=== PATIENT | male | born 2005 | race Caucasian/White ===

== ENCOUNTER 2025-01-23 19:31 | Emergency (ER) | payer OTHER, SELFPAY ==
[2025-01-23 19:34] VITALS: BP 126/83; PULSE 87; RESP 16; TEMP 36.7; O2SAT 97; BMI 22.0
--- OUTSIDE RECORDS SUMMARY | 2025-01-23 21:13 | XMS_ITS | Encounter Summary ---
Author Organization [facility] Address [address] [place] [address] Phone Care Team Providers Care Etcher Aircraft Name Role Phone Provider, Raghav RODRIGUES Primary Care Provider [phone] Encounter Details Date Type Department Care Team (Late st Contact Info) Description 12/14/2010 Documentation [facility] [place] Family Medicine [address] [place] [address] Family Medicine, Physician [address] [place], [place] [id number] Social History Tobacco Use Types Packs/Day Years Used Date Smoking Tobacco: Never Assessed Sex and Gender Information Value Date Recorded Sex Assigned at Male 07/17/2020 10:48 AM EDT Legal Sex Male 4:59 PM EDT Gender Identity Male 07/17/2020 10:48 AM EDT Sexual Orientation Straight 07/17/2020 10 :48 AM EDT documented as of this encounter Plan of Treatment Not on file documented as of this encounter Visit Diagnoses Not on filedocumented in this encounter Care Teams Etcher Aircraft Relationship Specialty Start Date End Date Provider, MD Raghav [address] [place] [address] PCP - General Pediatrics 11/13/24 documented as of this encounter
--- OUTSIDE RECORDS SUMMARY | 2025-01-23 21:13 | XMS_ITS | Encounter Summary ---
Author Organization [facility] Address [address] [place] [address] Phone Care Team Providers Care Electronics Computer Mechanic Name Role Phone Provider, Raghav RODRIGUES Primary Care Provider [phone] Encounter Details Date Type Department Care Team (Late st Contact Info) Description 01/16/2017 Documentation [facility] [place] [address] [place] [address] Family Medicine, Physician [address] [place], [place] [phone] Social History Tobacco Use Types Packs/Day Years [...] on filedocumented in this encounter Care Teams Electronics Computer Mechanic Relationship Specialty Start Date End Date Provider, MD Raghav [address] [place] [address] PCP - General Pediatrics 11/13/24 documented as of this encounter
--- OUTSIDE RECORDS SUMMARY | 2025-01-23 21:13 | XMS_ITS | Clinical Summary ---
Author Organization [facility] Address [address] [place] [address] Care Team Providers Care Model Technician Name Role Phone Unavailable Primary Care Provider Unavailabl e Allergies No known active allergies Medications No known medications Active Problems No known active problems Social History Tobacco Use Types Packs/Day Years Used Date Smoking Tobacco: Never Assessed Sex and Gender Information Value Date Recorded Sex Assigned at Male 04/19/2024 6:23 PM EDT Gender Identity Not on file Sexual Orientation Not on file Job Start Date Occupation Industry Not on file Not on file Not on file Last Filed Vital Signs Vital Sign Reading Time Taken Comments Blood Pressure 118/46 04/19/2024 9:13 PM EDT Pulse 70 04/19/2024 9:13 PM EDT Temperature 36.8 ??C (98.2 ??F) 04/19/2024 9:13 PM ED T Respiratory Rate 18 04/19/2024 9:13 PM EDT Oxygen Saturation 98% 04/19/2024 9:13 PM EDT Inhaled Oxygen Concentration - - Weight - - Height - - Body Mass Index - - Plan of Treatment Health Maintenance Due Date Last Done Comments Hepatitis C Screening 2004 Depression Screening 2016 Preventative Health Evaluation 2022 COVID-19 Vaccine ( season) 2024 11/18/2021, 10/28/2021 Influenza Vaccine (#1) 2024 , 08/11/2020, 09/08/2018, Additional history exists DTap / Tdap / Td (7 - Td or Tdap) 06/07/2025 06/07/2015, 05/26/2008, 11/28/2005, Additional history exists Hepatitis B Vaccines Completed 2004, 2004, 2004, Additional history exists Pneumococcal Vaccine Completed 08/22/2005, 2004, 2004, Additional history exists RSV Ped < 20 months Aged Out No longe r eligible based on patient's age to complete this topic Guarantor Name Account Type Relation to Patient Date of Phone Billing Address Andres Long Personal/Family Self 2005 [address] [place] [address]
--- OUTSIDE RECORDS SUMMARY | 2025-01-23 21:13 | XMS_ITS | Clinical Summary ---
Author Organization [facility] Address [address] [place] [id number] Care Team Providers Care Sap Portal Developer Name Role Phone Unavailable Primary Care Provider Unavailabl e Medications No known medications Social History Tobacco Use Types Packs/Day Years Used Date Smoking Tobacco: Never Assessed Sex and Gender Information Value Date Recorded Sex Assigned at Male 04/20/2024 7:33 PM EDT Gender Identity Male 04/20/2024 7:33 PM EDT Sexual Orientation Heterosexual (straight) 04/20 7:33 PM EDT Last Filed Vital Signs Vital Sign Reading Time Taken Comments Blood Pressure 122/64 04/21/2024 10:58 AM EDT Pulse 64 04/21/2024 10:58 AM EDT Temperature 36.4 ??C (97.6 ??F) 04/21/2024 10:58 AM E DT Respiratory Rate 16 04/21/2024 10:58 AM EDT Oxygen Saturation 98% 04/21/2024 10:58 AM EDT Inhaled Oxygen Concentration - - Weight - - Height - - Body Mass Index - - Plan of Treatment Health Maintenance Due Date Last Done Comments Hepatitis C Virus Screening 2004 HIV Screening 2017 HPV Vaccines (1 - Male 3-dose series) 2019 DTaP/Tdap/Td Vaccines (1 - Tdap) 2023 Hepatitis B Vaccines (1 of 3 - 19+ 3-dose series) 2023 Influenza Vaccine 06/24/2024 10/28/2021, , 09/08/2018, Additional history exists COVID-19 Vaccine (2023- season) 2024 11/18/2021, 10/28/2021 Pneumococcal Vaccine: Pediatric (0-5 Years) and At-Risk Patients (6 to 49 Years) Aged Out No longer eligible based on patient's age to complete this topic
--- OUTSIDE RECORDS SUMMARY | 2025-01-23 21:13 | XMS_ITS | Clinical Summary ---
Author Organization [facility] Address [address] [place] [address] Phone Care Team Providers Care Biological Science Aide Name Role Phone Physician, No Pcp Primary Care Provider Unavaila ble Allergies No known active allergies Encounters Date Type Department Care Team Description 12/08/2024 8:09 PM EST - 12/08/2024 11:56 PM EST Emergency [facility] [address] [place] [address] Palpitations (Primary Dx) Discharge Disposition: Home or Self Care from Last 3 Months Immunizations Name Administration Dates Next Due Pfizer SARS-CoV-2 COVID-19, mRNA, LNP-S, preservative free 11/18/2021,10/28/2021 Social History Tobacco Use Types Packs/Day Years Used Date Smoking Tobacco: Never Assessed Sex and Gender Information Value Date Recorded Sex Assigned at Male 12/08/2024 9:06 PM EST Legal Sex Male 4:42 PM EDT Gender Identity Male 12/08/2024 9:06 PM EST Sexual Orientation Not on file Obstetrics History Last Filed Vital Signs Vital Sign Reading Time Taken Comments Blood Pressure 129/64 12/08/2024 10:53 PM EST Pulse 68 12/08/2024 10:53 PM EST Temperature 37.2 ??C (99 ??F) 12/08/2024 10:53 PM EST Respiratory Rate 18 12/08/2024 10:53 PM EST Oxygen Saturation 98% 12/08/2024 10:53 PM EST Inhaled Oxygen Concentration - - Weight 63.5 kg (140 lb) 12/08/2024 5:39 PM EST Height 172.7 cm (5' 8 ) 12/08/2024 5:39 PM EST Body Mass Index 21.29 12/08/2024 5:39 PM EST Plan of Treatment Health Maintenance Due Date Last Done Comments Meningococcal B Vacine (1 of 2 - Standard) 2020 Annual Well Child Visit (3-21 years old) 06/23/2024 05/22/2022, 05/17/2021, 07/14/2020, Additional history exists Depression Screening 06/23/2024 HIV Screening 06/23/2024 Hepatitis C Screening 06/23/2024 Social Influencers of Health Screening 06/23/2024 COVID-19 Vaccine ( season) 2024 11/18/2021, 10/28/2021 Influenza Vaccine (#1) 2024 , 08/11/2020, 09/08/2018, Additional history exists DTaP,Tdap,and Td Vaccines (7 - Td or Tdap) 06/07/2025 06/07/2015, 05/26/2008, 11/28/2005, Additional history exists Hepatitis B Vaccines Completed 2004, 2004, 2004, Additional history exists HIB Vaccines Completed 08/22/2005, 11/24, 2004, Additional history exists Pneumococcal Vaccine: Pediatrics (0 to 5 Years) and At-Risk Patients (6 to 64 Years) Completed 08/22/2005, 2004, 2004, Additional history exists IPV Vaccines Completed 05/26/2008, 11/24, 2004, Additional history exists MMR Vaccines Completed 05/26/2008, 05/23/2005 Varicella Vaccines Completed 05/26/2008, 05/23/2005 Hepatitis A Vaccines Completed 06/07/2015, 06/01/20 14 HPV Vaccines Completed 06/12/2016, 07/25, 06/07/2015 Meningococcal ACWY Vaccine Completed 07/14/2020, RSV Immunization Patients Under 20 months Aged Out No longer eligible based on patient's age to complete this topic Procedures Procedure Name Priority Date/Time Associated Diagnosis Comments ECG 12-LEAD STAT 12/08/2024 10:51 PM EST THYROID STIMULATING HORMONE STAT 12/08/2024 9:50 PM EST COMPREHENSIVE METABOLIC PANEL STAT 12/08/2024 9:50 PM EST TROPONIN I HIGH SENSITIVITY STAT 12/08/2024 9:50 PM EST ECG 12-LEAD Routine 12/08/2024 8:40 PM EST CBC WITH AUTO DIFFERENTIAL STAT 12/08/2024 8:38 PM EST TROPONIN I HIGH SENSITIVITY STAT 12/08/2024 8:38 PM EST CBC AND DIFFERENTIAL STAT 12/08/2024 8:38 PM EST ECG ANNOTATED 12/08/2024 ECG ANNOTATED 12/08/2024 from Last 3 Months Results * 12-Lead ECG (12/08/2024 10:51 PM EST) Only the most recent of2 resultswithin the time period is included. Ventricular Rate ECG 63 BPM GEMUSE Atrial Rate 63 BPM GEMUSE P-R Interval 178 ms GEMUSE QRS Duration 100 ms GEMUSE Q-T Interval 390 ms GEMUSE QTc 399 ms GEMUSE P Wave [place] -4 degrees GEMUSE R [place] -113 degrees GEMUSE T [place] 46 degrees GEMUSE ECG Interpretation Normal sinus rhythm with sinus arrhythmia Right superior axis deviation Abnormal ECG When compared with ECG of 08-DEC-2024 20:40, (unconfirmed) No significant change was found Confirmed by SHRUTHI THOMPSON ([id number]) on 12/09/2024 9:40:06 AM GEMUSE 12/08/2024 10:5 1 PM EST 12/09/2024 9:40 AM EST us Nelson WINN ECG ORDERABLES Final Result GEMUSE * Troponin I high sensitivity (12/08/2024 9:50 PM EST) Only the most recent of2 resultswithin the time period is included. [facility] High Sensitivity Troponin I 4 <=79 ng/L LAB CHEMISTRY METHOD 12/08/2024 10:46 PM EST [facility] Blood Venous blood specimen / Unknown Venipuncture / Unknown 12/08/2024 9:50 PM EST 12/08/2024 10:18 PM EST Narrative [facility] - 12/08/2024 10:46 PM EST High levels of biotin in samples may falsely decrease hsTroponin values. ??Use caution when interpreting hsTroponin results in patients taking biotin who exhibit renal impairment (eGFR <60) or in patients taking more than 20 mg/day of biotin. [facility] WINN LAB BLOOD ORDERABLES Final Resul t Performing Organization Address [facility]/ZIP Co de Phone Number [facility] [address] [place] [address], [place] [phone] * Thyroid Stimulating Hormone (TSH) (12/08/2024 9:50 PM EST) [facility] TSH 2.31 0.40 - 4.00 mcIU/mL LAB CHEMISTRY METHOD 12/08/2024 10:54 PM EST [facility] Blood Venous blood specimen / Unknown Venipuncture / Unknown 12/08/2024 9:50 PM EST 12/08/2024 10:18 PM EST [facility] LAB BLOOD ORDERABLES Final Resul t Performing Organization Address City/[facility]/ZIP Co de Phone Number [facility] [address] [place] [address], [place] [phone] * Comprehensive Metabolic Panel (CMP) (12/08/2024 9:50 PM EST) [facility] Sodium 140 133 - 145 mmol/L LAB CHEMISTRY METHOD 12/08/2024 10:47 PM EST [facility] Potassium 3.5 3.5 - 5.5 mmol/L LAB CHEMISTRY METHOD 12/08/2024 10:47 PM [facility] Chloride 106 96 - 110 mmol/L LAB CHEMISTRY METHOD 12/08/2024 10:47 PM [facility] CO2 28 21 - 32 mmol/L LAB CHEMISTRY METHOD 12/08/2024 10:47 PM [facility] Anion Gap 6 3 - 11 LAB CHEMISTRY METHOD 12/08/2024 10:47 PM [facility] Glucose 89 70 - 100 mg/dL LAB CHEMISTRY METHOD 12/08/2024 10:47 PM [facility] BUN 15 5 - 25 mg/dL LAB CHEMISTRY METHOD 12/08/2024 10:47 PM [facility] Creatinine 1.13 0.70 - 1.30 mg/dL LAB CHEMISTRY METHOD 12/08/2024 10:47 PM [facility] eGFR 95 >=60 mL/min/1. 73m2 LAB CHEMISTRY METHOD 12/08/2024 10:47 PM [facility] Comment:Calculation based on the??Chronic Kidney Disease Epidemiology Collaboration (CKD-EPI) equation refit??without adjustment for race. BUN/Creatinine Ratio 13.3 LAB CHEMISTRY METHOD 12/08/2024 10:47 PM [facility] Calcium 9.9 8.5 - 10.5 mg/dL LAB CHEMISTRY METHOD 12/08/2024 10:47 PM [facility] AST (SGOT) 21 10 - 42 unit/L LAB CHEMISTRY METHOD 12/08/2024 10:47 PM [facility] ALT (SGPT) 24 10 - 60 unit/L LAB CHEMISTRY METHOD 12/08/2024 10:47 PM [facility] Alkaline Phosphatase 68 42 - 121 unit/L LAB CHEMISTRY METHOD 12/08/2024 10:47 PM [facility] Total Protein 7.7 6.0 - 8.0 g/dL LAB CHEMISTRY METHOD 12/08/2024 10:47 PM EST [facility] Albumin 4.7 3.2 - 5.0 g/dL LAB CHEMISTRY METHOD 12/08/2024 10:47 PM EST [facility] Total Bilirubin 0.8 0.0 - 1.4 mg/dL LAB CHEMISTRY METHOD 12/08/2024 10:47 PM EST [facility] Blood Venous blood specimen / Unknown Venipuncture / Unknown 12/08/2024 9:50 PM EST 12/08/2024 10:18 PM EST us Nelson WINN LAB BLOOD ORDERABLES Final Resul t [facility] [address] [place] [address], [place] [phone] * (ABNORMAL) CBC auto differential (12/08/2024 8:38 PM EST) WBC 8.8 4.8 - 10.8 K/mcL LAB HEMETOLOGY METHOD 12/08/2024 8:51 PM [facility] RBC 5.50 4.50 - 5.50 M/mcL LAB HEMETOLOGY METHOD 12/08/2024 8:51 PM [facility] Hemoglobin 16.4 13.5 - 17.5 g/dL LAB HEMETOLOGY METHOD 12/08/2024 8:51 PM [facility] Hematocrit 47.3 42.0 - 54.0 % LAB HEMETOLOGY METHOD 12/08/2024 8:51 PM [facility] MCV 86.8 79.0 - 98.0 FL LAB HEMETOLOGY METHOD 12/08/2024 8:51 PM [facility] MCH 30.1 27.0 - 32.0 pcg LAB HEMETOLOGY METHOD 12/08/2024 8:51 PM [facility] MCHC 34.7 32.0 - 37.0 g/dL LAB HEMETOLOGY METHOD 12/08/2024 8:51 PM [facility] RDW 13.2 11.0 - 15.0 % LAB HEMETOLOGY METHOD 12/08/2024 8:51 PM [facility] Platelets 194 130 - 400 K/mcL LAB HEMETOLOGY METHOD 12/08/2024 8:51 PM [facility] MPV 12.4(H) 7.0 - 11.0 FL LAB HEMETOLOGY METHOD 12/08/2024 8:51 PM [facility] NRBC 0.0 <1.0 % LAB HEMETOLOGY METHOD 12/08/2024 8:51 PM [facility] NRBC Absolute 0.00 <0.10 K/mcL LAB HEMETOLOGY METHOD 12/08/2024 8:51 PM [facility] Neutrophils Relative 65.5 % LAB HEMETOLOGY METHOD 12/08/2024 8:51 PM [facility] Lymphocytes Relative 26.3 % LAB HEMETOLOGY METHOD 12/08/2024 8:51 PM [facility] Monocytes Relative 7.1 % LAB HEMETOLOGY METHOD 12/08/2024 8:51 PM [facility] Eosinophils Relative 0.1 % LAB HEMETOLOGY METHOD 12/08/2024 8:51 PM [facility] Basophils Relative 0.7 % LAB HEMETOLOGY METHOD 12/08/2024 8:51 PM [facility] Immature Granulocytes Relative 0.3 % LAB HEMETOLOGY METHOD 12/08/2024 8:51 PM [facility] Neutrophils Absolute 5.76 1.50 - 7.00 K/mcL LAB HEMETOLOGY METHOD 12/08/2024 8:51 PM [facility] Lymphocytes Absolute 2.31 1.00 - 5.00 K/mcL LAB HEMETOLOGY METHOD 12/08/2024 8:51 PM EST [facility] Monocytes Absolute 0.62 0.20 - 1.00 K/mcL LAB HEMETOLOGY METHOD 12/08/2024 8:51 PM EST [facility] Eosinophils Absolute 0.01 0.00 - 0.50 K/[facility] LAB HEMETOLOGY METHOD 12/08/2024 8:51 PM EST [facility] Basophils Absolute 0.06 0.00 - 0.20 K/[facility] LAB HEMETOLOGY METHOD 12/08/2024 8:51 PM EST [facility] Immature Granulocytes Absolute 0.03 0.00 - 0.03 K/[facility] LAB HEMETOLOGY METHOD 12/08/2024 8:51 PM EST [facility] Blood Venous blood specimen / Unknown Venipuncture / Unknown 12/08/2024 8:38 PM EST 12/08/2024 8:43 PM EST [facility] LAB BLOOD ORDERABLES Final Resul t [facility] [address] [place] [address], * ECG-Annotated (12/08/2024) Only the most recent of2 resultswithin the time period is included. us Provider Onbase MD ECG ORDERABLES Final Result from Last 3 Months Insurance [facility] [employer] Care Teams Biological Science Aide Relationship Specialty Start Date End Date Physician, No Pcp PCP - General 12/08/24
--- OUTSIDE RECORDS SUMMARY | 2025-01-23 21:13 | XMS_ITS | Encounter Summary ---
Author Organization [facility] Address [address] [place] [address] Phone Care Team Providers Care Industrial Health And Safety Professor Name Role Phone Provider, Raghav RODRIGUES Primary Care Provider Encounter Details Date Type Department Care Team (Late st Contact Info) Description 02/05/2010 Documentation [facility] [place] [address] [place] [address] Family Medicine, Physician [address] [place], [place] [phone] Social History Tobacco Use Types Packs/Day Years [...] on filedocumented in this encounter Care Teams Industrial Health And Safety Professor Relationship Specialty Start Date End Date Provider, MD Raghav [address] [place] [address] PCP - General Pediatrics 11/13/24 documented as of this encounter
--- OUTSIDE RECORDS SUMMARY | 2025-01-23 21:13 | XMS_ITS | Encounter Summary ---
Author Organization [facility] Address [address] [place] [address] Phone Care Team Providers Care Supply Chain Business Analyst Name Role Phone Provider, Raghav RODRIGUES Primary Care Provider [phone] Reason for Visit * Reason Onset Date Comments concern for anxiety 12/09/2024 Encounter Details Date Type Department Care Team (Late st Contact Info) Description 12/09/2024 Telephone [facility] [place] [address] [place] [address] Azra White LPN [address] [place] [address] concern for anxiety Social History Tobacco Use Types Packs/Day Years Used Date Smoking Tobacco: Never Smokeless Tobacco: Never Comments:Never smoker Alcohol Use Standard Drinks/Week Comments No 0 (1 standard drink = 0.6 oz pur e alcohol) Hunger/Food Answer Date Recorded In the last 12 months, did y ou or your family ever eat less than you felt you should because there wasn't enough money for food? No 05/22/2022 Stable Housing Answer Date Recorded Are you worried that in the next 2 months you may not have stable housing? No 05/22/2022 Transportation Concerns Answer Date Rec orded In the last 12 months, have you or your family ever had to go without healthcare because you didn't have a way to get there? No 05/22/2022 Hazards in Home Answer Date Recorded Think about the place you li ve. Do you have problems with any of the following? Pests (mice or roaches), mold, no/not working smoke detectors, water leaks, no window guards. No 2021 Financing Utilities Answer Date Recorde d In the last 12 months, has t he electric, gas, oil, or water company threatened to shut off your services in your home? No 05/22/2022 Safety at Home Answer Date Recorded Are you or your family worried about feeling saf e in your home? No 05/22/2022 Outside Support Answer Date Recorded Do you feel that you need mo re support from other people or programs to help you care for yourself or your family? No 05/22/2022 Understanding Health Concerns Answer Da te Recorded Do you need help understandi ng your or your child's healthcare needs (diagnosis, medications, plan, etc.)? No 05/22/2022 Financing Health Concerns Answer Date R ecorded In the last 12 months, was t here a time when your child needed to see a doctor or get medications or supplies but could not because of cost? No 05/22/2022 Missing School or Work Answer Date Philip rded Did you or your child miss s chool or work because of a health problem that could have been avoided? No 05/22/2022 Sex and Gender Information Value Date Recorded Sex Assigned at Male 07/17/2020 10:48 AM EDT Legal Sex Male 4:59 PM EDT Gender Identity Male 07/17/2020 10:48 AM EDT Sexual Orientation Straight 07/17/2020 10 :48 AM EDT documented as of this encounter Miscellaneous Notes * Telephone Encounter - Magalis Aragon - 01/14/2025 5:05 PM EST I called pt and left VM's; will try again next week. Working on getting ER notes from most recent hospitalization. * Telephone Encounter - Naya Medina MD - 12/23/2024 5:26 PM EST Magalis Gregorio I would not refer him to [facility] if he is leaving for [place] in a month. If heneeds something before he leaves he should probably go to the walk-in at [facility]. Can you track down the ED note please? Thanks. PPP * Telephone Encounter - Magalis Aragon - 12/23/2024 5:00 PM EST I spoke to pt and he said that he was given a thirty day supply of meds from the ER (did not specify which meds). I talked about referring him to an adult psychiatrist at [facility] but he said he is moving to [place] at the end of December. I discussed him meeting a Clincian and he said he is doing better and does not need to meet with one. I advised him to get connected with a adult PCP and med provider when he moves to [place]. I told pt if he does not move to [place], to call me and let mayw. Pt understood and agreed. * Telephone Encounter - Magalis Aragon - 12/17/2024 5:07 PM EST Called pt and left second message. * Telephone Encounter - Magalis Aragon - 12/10/2024 8:18 AM EST Called pt and left message requesting call back. * Telephone Encounter - Roberto Lira LPN - 12/10/2024 7:16 AM EST Noted. Magalis please call. Thank you * Telephone Encounter - Naya Medina MD - 12/09/2024 5:32 PM EST Called and left message for patient to call office tomorrow. If he calls, please make sure he has number for Crisis in case needed. Would give call to Magalis Campuzano to offer patient places to walk infor behavioral health needs. Could consider appt with one of [facility]. Will also need a lost of adult providers so he can transition care. PPP * Telephone Encounter - Azra White LPN - 12/09/2024 4:55 PM EST Pt calling stating he needed to make first avail appt., that he was in the ER and was told her had anxiety. No concern for self harm. I advised because of his age, we will be asking that he start his search for an adult provider and that he should not expect to come in and walk out with a prescription for anxiety, that it would be a process which might involve seeing a therapist. He denies any thoughts of self harm. Last in office 05/02/22, and that was a PE. Would need to establish with new PCP. Advised putting call on hold to check his ins. Estella from manager front confirmed his ins still good for HPA. Pt disconnected the call. FYI to covering provider. EH documented in this encounter Plan of Treatment Not on file documented as of this encounter Visit Diagnoses Not on filedocumented in this encounter Care Teams Supply Chain Business Analyst Relationship Specialty Start Date End Date Provider, MD Raghav [address] [place] [phone] PCP - General Pediatrics 11/13/24 documented as of this encounter
--- OUTSIDE RECORDS SUMMARY | 2025-01-23 21:13 | XMS_ITS | Encounter Summary ---
Author Organization [facility] Address [address] [place] [address] Phone Care Team Providers Care Coke Drawer Hand Name Role Phone Provider, Raghav RODRIGUES Primary Care Provider [phone] Encounter Details Date Type Department Care Team (Late st Contact Info) Description 08/28/2016 Documentation [facility] [place] [address] [place] [address] Family Medicine, Physician [address] [place], [place] [phone] Social History Tobacco Use Types Packs/Day Years [...] on filedocumented in this encounter Care Teams Coke Drawer Hand Relationship Specialty Start Date End Date Provider, MD Raghav [address] [place] [address] PCP - General Pediatrics 11/13/24 documented as of this encounter
--- OUTSIDE RECORDS SUMMARY | 2025-01-23 21:13 | XMS_ITS | Encounter Summary ---
Author Organization [facility] Address [address] [place] [address] Phone Care Team Providers Care Ratchet Setter Name Role Phone Provider, Raghav RODRIGUES Primary Care Provider [phone] Encounter Details Date Type Department Care Team (Late st Contact Info) Description 07/10/2017 Conversion Encounter [facility] [address] [place] [address] Social History Tobacco Use Types Packs/Day Years Used Date Smoking Tobacco: Never Comments:Never smoker Sex and Gender Information Value Date Recorded Sex Assigned at Male 07/17/2020 10:48 AM EDT Legal Sex Male 4:59 PM EDT Gender Identity Male 07/17/2020 10:48 AM EDT Sexual Orientation Straight 07/17/2020 10 :48 AM EDT documented as of this encounter Plan of Treatment Not on file documented as of this encounter Visit Diagnoses Not on filedocumented in this encounter Care Teams Ratchet Setter Relationship Specialty Start Date End Date Provider, MD Raghav [address] [place] [phone] PCP - General Pediatrics 11/13/24 documented as of this encounter
--- OUTSIDE RECORDS SUMMARY | 2025-01-23 21:13 | XMS_ITS | Encounter Summary ---
Author Organization [facility] Address [address] [place] [address] Phone Care Team Providers Care Boot Liner Maker Name Role Phone Provider, Raghav RODRIGUES Primary Care Provider [phone] Encounter Details Date Type Department Care Team (Late st Contact Info) Description 12/13/2016 Documentation [facility] [place] [address] [place] [address] Family Medicine, Physician [address] [place], [place] [phone] Social History Tobacco Use Types Packs/Day Years [...] on filedocumented in this encounter Care Teams Boot Liner Maker Relationship Specialty Start Date End Date Provider, MD Raghav [address] [place] [address] PCP - General Pediatrics 11/13/24 documented as of this encounter
--- OUTSIDE RECORDS SUMMARY | 2025-01-23 21:13 | XMS_ITS | Clinical Summary ---
Author Organization [facility] Address [address] [place] [address] Phone Care Team Providers Care Soda Dispenser Name Role Phone Provider, Raghav RODRIGUES Primary Care Provider [phone] Allergies No known active allergies Medications No known medications Active Problems Problem Noted Date Diagnosed Date Adjustment disorder with mix ed disturbance of emotions and conduct 05/17/2021 Overview (05/17/2021): Had problems running away, not taking med (guanfacine) DCF was involved Assessment & Plan (05/22/2022 1:37 PM EDT): Doing well now. Not in counseling feels does not need it. Listens to music instead of vaping. Assessment & Plan (05/17/2021 2:32 PM EDT): Seems better now, ?if guanfacine helpful. Psychosocial stressors 02/04/2020 Overview (07/14/2020): DCF was involved. Now with adopted little brother with FAS/ADHD, doing well Assessment & Plan (05/17/2021 2:19 PM EDT): Doing well now. Attention deficit hyperactiv ity disorder (ADHD), combined type 06/29/2019 Overview (05/18/2021): On concerta, still had trouble finishing homework, taken off, doing fine on guanfacine alone. ?why needs guanfacine Assessment & Plan (05/22/2022 1:37 PM EDT): Doing fine off of med. Avoid artificial food coloring, get fresh air and exercise. Assessment & Plan (05/17/2021 2:32 PM EDT): Doing ok now Assessment & Plan (02/01/2021 4:45 PM EST): Mom needs FMLA for work - done. Assessment & Plan (06/29/2019 2:32 PM EDT): Needs close follow up. Sees Annalise Phan, and Carole Lantigua at [facility]. 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 Assessment & Plan (05/17/2021 2:19 PM EDT): No special help now. Assessment & Plan (02/01/2021 4:45 PM EST): Continue help in school Assessment & Plan (06/29/2019 2:30 PM EDT): Failed two classes, should be getting special help. Resolved Problems Problem Noted Date Diagnosed Date Resolved Date Underweight due to inadequate caloric intake 05/22/2022 Overview (05/17/2021): Poor appetite. ?reason. Assessment & Plan (05/17/2021 2:18 PM EDT): Check labs. Encouraged counseling, ?depression but says does not need. Gastritis 05/17/2021 05/22/2022 Overview (05/17/2021): Stomach bothers him sometimes. Assessment & Plan (05/22/2022 1:36 PM EDT): Better now. Assessment & Plan (05/17/2021 2:20 PM EDT): Will give trial of pepscid. Engages in nicotine containi ng substance vaping 05/17/2021 05/22/2022 Overview (05/17/2021): Showed me a picture, says not using now, but am worried, positive family hx of drug abuse - dad. Assessment & Plan (05/22/2022 1:35 PM EDT): resolved Assessment & Plan (05/17/2021 2:21 PM EDT): I suggest substance abuse counseling but deferred. Will follow up in 1-2 months. Postural kyphosis of cervicothoracic region 05/17/2021 05/22/2022 Overview (05/17/2021): Is postural Assessment & Plan (05/22/2022 1:35 PM EDT): Better now. Assessment & Plan (05/17/2021 2:22 PM EDT): Practice postural exercises. Knee problem 07/14/2020 05/17/2021 Overview (07/14/2020): Left knee gives out , has had problem for years. Had problems crawling, step dad says, drag left leg. Assessment & Plan (07/14/2020 3:51 PM EDT): Will refer to Elin Gonzalez Date Type Department Care Team Description 12/09/2024 Telephone [facility] - [address] [address] Azra White LPN concern for anxiety from Last 3 Months Immunizations Immunization Administration Dates Next Due COVID-19 Pfizer, monovalent, 12+ years ,10/28/2021 DTaP / Hep B / IPV 2004,2004 DTaP 5 05/26/2008,11/28/2005,2004 HPV Vaccine 9 Valent 06/12/2016,08/09/2015,06/07 Hep A, ped/adol 06/07/2015,06/01/2014 Hep B, ped/adol 2004,2004 Hib (HbOC) 08/22/2005, 5,2004,08/02 IPV 05/26/2008,2004 Influenza, injectable, quadr ivalent, preservative free 10/28/2021,08/11/2020,09/08/2018,08/09,09/08/2014,09/07/2013 Influenza, intranasal, trivalent 10/15/2010,08/25 MMR 05/26/2008,05/23/2005 Meningococcal Conj (Menactra) MCV4P 07/14/2020,0 06/07/2015 Pneumococcal Conjugate 08/22/2005,2004,2004,08/02 Tdap 06/07/2015 Varicella 05/26/2008,05/23/2005 Family History Medical History Relation Name Comments No Known Problems Brother 1 Yavier No Known Problems Brother 2 Adi Diabetes Father Porfirio Hypertension Father Porfirio Obesity Father Porfirio Hyperlipidemia Mother Daniela Relation Name Status Comments Brother 1 Yavier Alive Brother 2 Adi Alive Father Porfirio Alive Father: Alive a nd well, Learning disability, Depression, Diabetes mellitus Maternal Grandfather Materna l grandfather: Diabetes mellitus Maternal Grandmother Materna l grandmother: Diabetes mellitus, Myocardial infarction Mother Daniela Alive Mother: Bipolar disorder, Alive and well, Anxiety, ADD/ADHD, pre diabetic Paternal Grandfather Paterna l grandfather: Diabetes mellitus Paternal Grandmother Paterna l grandmother: Diabetes mellitus Social History Tobacco Use Types Packs/Day Years [...] Orientation Straight 07/17/2020 10 :48 AM EDT Last Filed Vital Signs Vital Sign Reading Time Taken Comments Blood Pressure 117/70 05/22/2022 1:20 PM EDT Pulse 75 05/22/2022 1:20 PM EDT Temperature 36.7 ??C (98.1 ??F) 05/22/2022 1:20 PM ED T Respiratory Rate - - Oxygen Saturation - - Inhaled Oxygen Concentration - - Weight 60.1 kg (132 lb 9.6 oz) 05/22/2022 1:20 P M EDT Height 171.5 cm (5' 7.5 ) 05/22/2022 1:20 PM EDT Body Mass Index 20.46 05/22/2022 1:20 PM EDT Plan of Treatment Health Maintenance Due Date Last Done Comments Men B Vaccine (1 of 2 - Standard) 2020 Influenza Vaccines (#1) 2024 10/28/20 21, 08/11/2020, 09/08/2018, Additional history exists COVID-19 Vaccine (3 - 2023-2 5 season) 2024 11/18/2021, 10/28/2021 DTaP,Tdap,and Td Vaccines (7 - Td or Tdap) 06/07/2025 06/07/2015, 05/26/2008, 11/28/2005, Additional history exists Hepatitis B Vaccines Completed 2004, 2004, 2004, Additional history exists HIB Vaccines Completed 08/22/2005, 11/24, 2004, Additional history exists Pneumococcal Vaccine Completed 08/22/2005, 2004, 2004, Additional history exists IPV Vaccines Completed 05/26/2008, 11/24, 2004, Additional history exists MMR Vaccines Completed 05/26/2008, 05/23/2005 Varicella Vaccines Completed 05/26/2008, 05/23/2005 Hepatitis A Vaccines Completed 06/07/2015, 06/01/20 14 HPV Vaccines Completed 06/12/2016, 07/25, 06/07/2015 Meningococcal Vaccine Completed 07/14/2020, [address] [place] [address] NON PCC [facility] Care Teams Soda Dispenser Relationship Specialty Start Date End Date Provider, MD Raghav [address] [place] [phone] PCP - General Pediatrics 11/13/24
[2025-01-23] MEDS: Lidocaine HCl 1 % MPF 2 ML VIAL INFILTRATI (22:18)
--- NOTE | 2025-01-23 22:29 | ED.WOUNDLAC ---
HPI - Wound/Laceration General Chief Complaint: Wound/Laceration Stated Complaint: right pointer finger injury Time Seen by Provider: 01/23/25 21:54 Source: patient Mode of arrival: ambulatory Limitations: no limitations History of Present Illness ED Provider: Dr. Sofia Butcher HPI narrative: Patient comes to emergency room complaining of a laceration to the right index finger. Patient states that he was cooking dinner, he accidentally sliced his finger with a steak knife. Patient denies any other injuries. Patient states that he is not sure if he is up-to-date with his tetanus immunizations. Related Data Previous Rx's ?Medication ?Instructions ?Recorded aspirin 650 mg tablet,delayed 650 mg PO Q8-10H 2 weeks #42 tabs 12/09/24 release colchicine 0.6 mg capsule 0.6 mg PO BID 180 days #360 caps 12/09/24 pantoprazole 20 mg tablet,delayed 20 mg PO DAILY #30 tabs 12/09/24 release cyclobenzaprine 10 mg tablet 10 mg PO TID PRN muscle spasm #20 12/18/24 tabs Allergies Allergy/AdvReac Type Severity Reaction Status Date / Time No Known Allergies Allergy Verified 01/23/25 19:36 Review of Systems Review of Systems: Constitutional : No Weight loss, No Fever, No Chills, No Night Sweats, No Fatigue, No Malaise ENT/Mouth : No Hearing loss, No Ear Pain, No Nasal Congestion, No Sinus Pain, No Hoarseness, No sore throat, No Rhinorrhea, No Swallowing Difficulty Eyes: No Eye Pain, No Swelling, No Redness, No Foreign Body, No Discharge, No Vision Changes Cardiovascular : No Chest Pain, No SOB, No Dyspnea on Exertion, No Orthopnea, No Edema, No Palpitations Respiratory : No Cough, No Sputum, No Wheezing, No Smoke Exposure, No Dyspnea Gastrointestinal : No Nausea, No Vomiting, No Diarrhea, No Constipation, No abdominal Pain, No Hematochezia, No Melena Genitourinary : no irregular bleeding, No Dysuria, No Urinary Frequency, No Hematuria, No Urinary Incontinence, No Urgency, No Flank Pain, No Urinary Flow Changes, No Hesitancy Musculoskeletal : No joint pain, No Myalgias, No Joint Swelling Skin : complaining of a laceration to the right index finger Neuro : No Weakness, No Numbness, No Paresthesias, No Loss of Consciousness, No Dizziness, No Headache Psych : No Anxiety/Panic, No Depression, No SI/HI/AH/VH, No Social Issues, Heme/Lymph: No Bruising, No Bleeding,No Lymphadenopathy Endocrine : No Polyuria, No Polydipsia, No Temperature Intolerance [facility] Past Medical History Medical History Pericarditis Social History Social History (Updated 12/18/24 @ 07:29 by Kenya Mccurdy DO) Patient Tobacco Use Status: Never used Tobacco Substance Use Type: Marijuana Advance Directives: No Advance Directives Information Provided: Yes Do you have a plan to hurt others: No Plan Physical Exam Vital Signs: Vital Signs: Last Vital Signs Temp 98.0 F 01/23/25 19:34 Pulse 87 01/23/25 19:34 Resp 16 01/23/25 19:34 BP 126/83 01/23/25 19:34 Pulse Ox 97 01/23/25 19:34 O2 Del Method Room Air 01/23/25 19:34 BMI result Body Mass Index 22.0 Const: Other: Appearance: Alert. Oriented X3. No acute distress. Eyes: Pupils equal, round and reactive to light. ENT: Pharynx normal. Neck: Normal inspection. Neck supple. No lymph nodes noted. No crepitus CVS: Normal heart rate and rhythm. Pulses normal. Normal S1 and S2 Respiratory: No respiratory distress. Breath sounds normal. No Wheezing. No rales Abdomen: Soft and nontender. No rigidity. No distention. Skin: Skin warm and dry. Normal skin color. Normal skin turgor. Extremities: No lower extremity edema. No Lacerations. Finger was examined under a bloodless field, in the right hand, on the index finger there is a 2 cm laceration. patient is able to flex and extend the finger with full range of motion Neuro: Oriented X 3. No motor deficit. No sensory deficit. Moving all extremities. No slurred speech. CN 2 through 12 grossly intact Psych: calm, cooperative, normal affect Medications Administered Discontinued Medications Generic Name Dose Route Start Last Admin Trade Name Freq PRN Reason Stop Dose Admin Lidocaine HCl 2 ml 01/23/25 22:14 01/23/25 22:18 Lidocaine Hcl 1 % Mpf 2 Ml Vial INFILTRATI 03/02/25 22:15 2 ml ONCE ONE Administration Medical Decision Making Medical Decision Making MDM Narrative: patient was given a Tdap booster and p.o. Tylenol patient received 4 stitches, tolerated well the procedure. Procedures Laceration Laceration 1: Site: hand Side (If applicable): right Size (cm): 2 Description: linear Depth: simple, single layer Local Anesthetic: lidocaine 1% Amount of anesthesia used (mL): 2 Pre-repair: wound explored and irrigated extensively Skin layer closed with: nylon Size (cm): 3-0 Number of sutures: 4 Technique: simple, interrupted Discharge Plan Discharge Clinical Impression: Laceration Patient Disposition: Home, Self-Care Instructions: Finger Laceration (ED) Additional Instructions: Please follow-up with your primary care physician tomorrow. If you have any worsening or new symptoms, please return to the emergency room or call 911 Prescriptions: No Action colchicine 0.6 mg capsule 0.6 mg PO BID 180 Days Qty: 360 0RF aspirin 650 mg tablet,delayed release (DR/EC) 650 mg PO Q8-10H 14 Days Qty: 42 0RF pantoprazole 20 mg tablet,delayed release (DR/EC) 20 mg PO DAILY Qty: 30 0RF cyclobenzaprine 10 mg tablet 10 mg PO TID PRN (Reason: muscle spasm) Qty: 20 0RF Stand Alone Forms: Work/School Release Print Language: [place] Citizen
[2025-01-23] MEDS: Acetaminophen 325 MG TABLET 975 MG PO (22:58)
[2025-01-23] MEDS: Diphth,Pertus(ACell),Tet Adult 0.5 ML SYRINGE IM (22:59)
[2025-01-23 23:01] VITALS: BP 126/83; PULSE 87; RESP 16; TEMP 36.7; O2SAT 97
== END 2025-01-23 23:01 | disposition home or self-care (01) ==
PROVIDERS: Emergency Provider Emergency Medicine
DX: S61.210A Laceration without foreign body of right index finger without damage to nail, initial encounter (principal); M79.641 Pain in right hand; W26.0XXA Contact with knife, initial encounter; Y93.G3 Activity, cooking and baking; Y92.9 Unspecified place or not applicable; Y99.8 Other external cause status; Z23 Encounter for immunization
CPT/HCPCS: 12001; 90471; 90715; 99283; 99284; J2003

== ENCOUNTER 2025-01-24 10:26 | Emergency (ER) | payer OTHER, SELFPAY ==
[2025-01-24 10:46] VITALS: BP 122/46; PULSE 72; RESP 16; TEMP 36.4; O2SAT 98; BMI 22.0
--- OUTSIDE RECORDS SUMMARY | 2025-01-24 15:58 | XMS_ITS | Encounter Summary ---
Author Organization [facility] Address [address] [place] [address] Phone Care Team Providers Care Field Laboratory Operator Name Role Phone Provider, Raghav RODRIGUES Primary Care Provider [phone] Reason for Visit * Reason Onset Date Comments concern for anxiety 12/09/2024 Encounter Details Date Type Department Care Team (Late st Contact Info) Description 12/09/2024 Telephone [facility] [place] [address] [place] [address] Azra White LPN [address] [place] [address] concern for anxiety Social History Tobacco Use [...] Gregorio I would not refer him to [facility] if he is leaving for [place] in a month. If heneeds something before he leaves he should probably go to the walk-in at [facility]. Can you track down the ED note please? Thanks. PPP * Telephone Encounter - Magalis Aragon - 12/23/2024 5:00 PM EST I spoke to pt and he said that he was given a thirty day supply of meds from the ER (did not specify which meds). I talked about referring him to an adult psychiatrist at [facility] but he said he is moving to [place] at the end of December. I discussed him meeting a Clincian and he said he is doing better and does not need to meet with one. I advised him to get connected with a adult PCP and med provider when he moves to [place]. I told pt if he does not move to [place], to call me and let mayw. Pt [...] needs. Could consider appt with one of [facility]. Will also need a lost of [...] hold to check his ins. Estella from front office attendant confirmed his ins still good for HPA. Pt disconnected the call. FYI to covering provider. EH documented in this encounter Plan of Treatment Not on file documented as of this encounter Visit Diagnoses Not on filedocumented in this encounter Care Teams Field Laboratory Operator Relationship Specialty Start Date End Date Provider, MD Raghav [address] [place] [phone] PCP - General Pediatrics 11/13/24 documented as of this encounter
--- OUTSIDE RECORDS SUMMARY | 2025-01-24 15:58 | XMS_ITS | Encounter Summary ---
Author Organization [facility] Address [address] [place] [address] Phone Care Team Providers Care Threader Name Role Phone Provider, Raghav RODRIGUES Primary Care Provider [phone] Encounter Details Date Type Department Care Team (Late st Contact Info) Description 08/28/2016 Documentation [facility] [place] [address] [place] [address] Family Medicine, Physician [address] [place], [place] [phone] Social History Tobacco Use Types Packs/Day Years [...] on filedocumented in this encounter Care Teams Threader Relationship Specialty Start Date End Date Provider, MD Raghav [address] [place] [phone] PCP - General Pediatrics 11/13/24 documented as of this encounter
--- OUTSIDE RECORDS SUMMARY | 2025-01-24 15:58 | XMS_ITS | Clinical Summary ---
Author Organization [facility] Address [address] [place] [address] Phone Care Team Providers Care Board Certified Behavioral Analyst Name Role Phone Provider, Raghav RODRIGUES Primary Care Provider [phone] Allergies No known active allergies Medications No [...] Sees Annalise Phan, and Carole Lantigua at [facility]. 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
--- OUTSIDE RECORDS SUMMARY | 2025-01-24 15:58 | XMS_ITS | Encounter Summary ---
Author Organization [facility] Address [address] [place] [address] Phone Care Team Providers Care Labor Arbitrator Name Role Phone Provider, Raghav RODRIGUES Primary Care Provider [phone] Encounter Details Date Type Department Care Team (Late st Contact Info) Description 12/13/2016 Documentation [facility] [place] Family Medicine [address] [place] [address] Family Medicine, Physician [address] [place], [place] [phone] Social History Tobacco Use Types Packs/Day Years [...] on filedocumented in this encounter Care Teams Labor Arbitrator Relationship Specialty Start Date End Date Provider, MD Raghav [address] [place] [phone] PCP - General Pediatrics 11/13/24 documented as of this encounter
--- OUTSIDE RECORDS SUMMARY | 2025-01-24 15:58 | XMS_ITS | Clinical Summary ---
Author Organization [facility] Address [address] [place] [address] Phone Care Team Providers Care Shop Tailor Name Role Phone Physician, No Pcp Primary Care Provider Unavaila ble Allergies No known active allergies Encounters Date Type Department Care Team Description 12/08/2024 8:09 PM EST - 12/08/2024 11:56 PM EST Emergency [facility] Emergency [address] [place] [address] Palpitations (Primary Dx) Discharge Disposition: [...] GEMUSE QTc 399 ms GEMUSE P Wave Bonita -4 degrees GEMUSE R Bonita -113 degrees GEMUSE T Bonita 46 degrees GEMUSE ECG Interpretation Normal sinus [...] of2 resultswithin the time period is included. [facility] High Sensitivity Troponin I 4 <=79 ng/L LAB CHEMISTRY METHOD 12/08/2024 10:46 PM EST [facility] Blood Venous blood specimen / Unknown Venipuncture / Unknown 12/08/2024 9:50 PM EST 12/08/2024 10:18 PM EST Narrative [facility] - 12/08/2024 10:46 PM EST High levels of biotin in samples may falsely decrease hsTroponin values. ??Use caution when interpreting hsTroponin results in patients taking biotin who exhibit renal impairment (eGFR <60) or in patients taking more than 20 mg/day of biotin. [facility] LAB BLOOD ORDERABLES Final Resul t Performing Organization Address [facility]/ZIP Co de Phone Number [facility] [address] [place] [address], [place] [phone] * Thyroid Stimulating Hormone (TSH) (12/08/2024 9:50 PM EST) [facility] TSH 2.31 0.40 - 4.00 mcIU/mL LAB CHEMISTRY METHOD 12/08/2024 10:54 PM EST [facility] Blood Venous blood specimen / Unknown Venipuncture / Unknown 12/08/2024 9:50 PM EST 12/08/2024 10:18 PM EST [facility] LAB BLOOD ORDERABLES Final Resul t Performing Organization Address City/[facility]/ZIP Co de Phone Number [facility] [address] [place] [address], [place] [phone] * Comprehensive Metabolic Panel (CMP) (12/08/2024 9:50 PM EST) [facility] Sodium 140 133 - 145 mmol/L LAB CHEMISTRY METHOD 12/08/2024 10:47 PM EST [facility] Potassium 3.5 3.5 - 5.5 mmol/L LAB CHEMISTRY METHOD 12/08/2024 10:47 PM [facility] Chloride 106 96 - 110 mmol/L LAB CHEMISTRY METHOD 12/08/2024 10:47 PM [facility] CO2 28 21 - 32 mmol/L LAB CHEMISTRY METHOD 12/08/2024 10:47 PM [facility] Anion Gap 6 3 - 11 LAB CHEMISTRY METHOD 12/08/2024 10:47 PM [facility] Glucose 89 70 - 100 mg/dL LAB CHEMISTRY METHOD 12/08/2024 10:47 PM [facility] BUN 15 5 - 25 mg/dL LAB CHEMISTRY METHOD 12/08/2024 10:47 PM [facility] Creatinine 1.13 0.70 - 1.30 mg/dL LAB CHEMISTRY METHOD 12/08/2024 10:47 PM [facility] eGFR 95 >=60 mL/min/1. 73m2 LAB CHEMISTRY METHOD 12/08/2024 10:47 PM [facility] Comment:Calculation based on the??Chronic Kidney Disease Epidemiology Collaboration (CKD-EPI) equation refit??without adjustment for race. BUN/Creatinine Ratio 13.3 LAB CHEMISTRY METHOD 12/08/2024 10:47 PM [facility] Calcium 9.9 8.5 - 10.5 mg/dL LAB CHEMISTRY METHOD 12/08/2024 10:47 PM [facility] AST (SGOT) 21 10 - 42 unit/L LAB CHEMISTRY METHOD 12/08/2024 10:47 PM [facility] ALT (SGPT) 24 10 - 60 unit/L LAB CHEMISTRY METHOD 12/08/2024 10:47 PM [facility] Alkaline Phosphatase 68 42 - 121 unit/L LAB CHEMISTRY METHOD 12/08/2024 10:47 PM [facility] Total Protein 7.7 6.0 - 8.0 g/dL LAB CHEMISTRY METHOD 12/08/2024 10:47 PM EST [facility] Albumin 4.7 3.2 - 5.0 g/dL LAB CHEMISTRY METHOD 12/08/2024 10:47 PM EST [facility] Total Bilirubin 0.8 0.0 - 1.4 mg/dL LAB CHEMISTRY METHOD 12/08/2024 10:47 PM EST [facility] Blood Venous blood specimen / Unknown Venipuncture / Unknown 12/08/2024 9:50 PM EST 12/08/2024 10:18 PM EST us [facility] LAB BLOOD ORDERABLES Final Resul t [facility] [address] [place] [address], [place] [phone] * (ABNORMAL) CBC auto differential (12/08/2024 8:38 PM EST) WBC 8.8 4.8 - 10.8 K/mcL LAB HEMETOLOGY METHOD 12/08/2024 8:51 PM [facility] RBC 5.50 4.50 - 5.50 M/mcL LAB HEMETOLOGY METHOD 12/08/2024 8:51 PM [facility] Hemoglobin 16.4 13.5 - 17.5 g/dL LAB HEMETOLOGY METHOD 12/08/2024 8:51 PM [facility] Hematocrit 47.3 42.0 - 54.0 % LAB HEMETOLOGY METHOD 12/08/2024 8:51 PM [facility] MCV 86.8 79.0 - 98.0 FL LAB HEMETOLOGY METHOD 12/08/2024 8:51 PM [facility] MCH 30.1 27.0 - 32.0 pcg LAB HEMETOLOGY METHOD 12/08/2024 8:51 PM [facility] MCHC 34.7 32.0 - 37.0 g/dL LAB HEMETOLOGY METHOD 12/08/2024 8:51 PM [facility] RDW 13.2 11.0 - 15.0 % LAB HEMETOLOGY METHOD 12/08/2024 8:51 PM [facility] Platelets 194 130 - 400 K/mcL LAB HEMETOLOGY METHOD 12/08/2024 8:51 PM [facility] MPV 12.4(H) 7.0 - 11.0 FL LAB HEMETOLOGY METHOD 12/08/2024 8:51 PM [facility] NRBC 0.0 <1.0 % LAB HEMETOLOGY METHOD 12/08/2024 8:51 PM [facility] NRBC Absolute 0.00 <0.10 K/mcL LAB HEMETOLOGY METHOD 12/08/2024 8:51 PM [facility] Neutrophils Relative 65.5 % LAB HEMETOLOGY METHOD 12/08/2024 8:51 PM [facility] Lymphocytes Relative 26.3 % LAB HEMETOLOGY METHOD 12/08/2024 8:51 PM [facility] Monocytes Relative 7.1 % LAB HEMETOLOGY METHOD 12/08/2024 8:51 PM [facility] Eosinophils Relative 0.1 % LAB HEMETOLOGY METHOD 12/08/2024 8:51 PM [facility] Basophils Relative 0.7 % LAB HEMETOLOGY METHOD 12/08/2024 8:51 PM [facility] Immature Granulocytes Relative 0.3 % LAB HEMETOLOGY METHOD 12/08/2024 8:51 PM [facility] Neutrophils Absolute 5.76 1.50 - 7.00 K/mcL LAB HEMETOLOGY METHOD 12/08/2024 8:51 PM [facility] Lymphocytes Absolute 2.31 1.00 - 5.00 K/mcL LAB HEMETOLOGY METHOD 12/08/2024 8:51 PM EST [facility] Monocytes Absolute 0.62 0.20 - 1.00 K/mcL LAB HEMETOLOGY METHOD 12/08/2024 8:51 PM EST [facility] Eosinophils Absolute 0.01 0.00 - 0.50 K/[facility] LAB HEMETOLOGY METHOD 12/08/2024 8:51 PM EST [facility] Basophils Absolute 0.06 0.00 - 0.20 K/[facility] LAB HEMETOLOGY METHOD 12/08/2024 8:51 PM EST [facility] Immature Granulocytes Absolute 0.03 0.00 - 0.03 K/[facility] LAB HEMETOLOGY METHOD 12/08/2024 8:51 PM EST [facility] Blood Venous blood specimen / Unknown Venipuncture / Unknown 12/08/2024 8:38 PM EST 12/08/2024 8:43 PM EST [facility] LAB BLOOD ORDERABLES Final Resul t [facility] [address] [place] [address], * ECG-Annotated (12/08/2024) Only the most recent of2 resultswithin the time period is included. us Provider Onbase MD ECG ORDERABLES Final Result from Last 3 Months Insurance [facility] Care Teams Shop Tailor Relationship Specialty Start Date End Date Physician, No Pcp PCP - General 12/08/24
--- OUTSIDE RECORDS SUMMARY | 2025-01-24 15:58 | XMS_ITS | Encounter Summary ---
Author Organization [facility] Address [address] [place] [address] Phone Care Team Providers Care Swatch Checker Name Role Phone Provider, Raghav RODRIGUES Primary Care Provider [phone] Encounter Details Date Type Department Care Team (Late st Contact Info) Description 01/16/2017 Documentation [facility] [place] [address] [place] [address] Family Medicine, Physician [address] [place], [place] [phone] Social History Tobacco Use Types Packs/Day Years [...] on filedocumented in this encounter Care Teams Swatch Checker Relationship Specialty Start Date End Date Provider, MD Rgahav [address] [place] [address] PCP - General Pediatrics 11/13/24 documented as of this encounter
--- OUTSIDE RECORDS SUMMARY | 2025-01-24 15:58 | XMS_ITS | Clinical Summary ---
Author Organization [facility] Address [address] [place] [address] Care Team Providers Care Refinery Operator Visbreaking Name Role Phone Unavailable Primary Care Provider [...] Andres Long Personal/Family Self 2005 [address] [facility] [address] [place] [address]
--- OUTSIDE RECORDS SUMMARY | 2025-01-24 15:58 | XMS_ITS | Clinical Summary ---
Author Organization [facility] Address [address] [place] [address] Care Team Providers Care Lead Process Engineer Name Role Phone Unavailable Primary Care Provider [...]
--- OUTSIDE RECORDS SUMMARY | 2025-01-24 15:58 | XMS_ITS | Encounter Summary ---
Author Organization [facility] Address [address] [place] [address] Phone Care Team Providers Care Solution Engineer Name Role Phone Provider, Raghav RODRIGUES Primary Care Provider [phone] Encounter Details Date Type Department Care Team (Late st Contact Info) Description 12/14/2010 Documentation [facility] [place] [address] [place] [address] Family Medicine, Physician [address] [place], [place] [phone] Social History Tobacco Use Types Packs/Day Years [...] on filedocumented in this encounter Care Teams Solution Engineer Relationship Specialty Start Date End Date Provider, MD Raghav [address] [place] [address] PCP - General Pediatrics 11/13/24 documented as of this encounter
--- OUTSIDE RECORDS SUMMARY | 2025-01-24 15:58 | XMS_ITS | Encounter Summary ---
Author Organization [facility] Address [address] [place] [address] Phone Care Team Providers Care Buckle Sewer Machine Name Role Phone Provider, Raghav RODRIGUES Primary Care Provider [phone] Encounter Details Date Type Department Care Team (Late st Contact Info) Description 07/10/2017 Conversion Encounter [facility] [address] [place] [address] Social History Tobacco Use Types Packs/Day Years [...] on filedocumented in this encounter Care Teams Buckle Sewer Machine Relationship Specialty Start Date End Date Provider, MD Raghav [address] [place] [phone] PCP - General Pediatrics 11/13/24 documented as of this encounter
--- OUTSIDE RECORDS SUMMARY | 2025-01-24 15:58 | XMS_ITS | Encounter Summary ---
Author Organization [facility] Address [address] [place] [address] Phone Care Team Providers Care Patent Agent Name Role Phone Provider, Raghav RODRIGUES Primary Care Provider [phone] Encounter Details Date Type Department Care Team (Late st Contact Info) Description 02/05/2010 Documentation [facility] Family Medicine [address] [place] [address] Family Medicine, Physician [address] [place], [place] [phone] Social History Tobacco Use Types Packs/Day Years [...] on filedocumented in this encounter Care Teams Patent Agent Relationship Specialty Start Date End Date Provider, MD Raghav [address] [place] [address] PCP - General Pediatrics 11/13/24 documented as of this encounter
== END 2025-01-24 14:42 | disposition left against medical advice (07) ==
PROVIDERS: Emergency Provider Emergency Medicine
DX: T14.8XXD Other injury of unspecified body region, subsequent encounter (principal); X58.XXXD Exposure to other specified factors, subsequent encounter
CPT/HCPCS: 99281

== ENCOUNTER 2025-01-29 17:55 | Emergency (ER) | payer MEDICAID, SELFPAY ==
--- NOTE | ~2025-01-29 | XR_ITS ---
CLINICAL HISTORY: ?infection to r pointer finger 3 view right 2nd digit Comparison: None Findings: Linear lucency of the nondisplaced fracture or resorption from osteomyelitis in the radial cortex of the middle phalanx of the 2nd digit on the frontal image. No displaced fracture or dislocation. Superficial soft tissue swelling with superficial defect by radiographs. No retained radiopaque foreign body. IMPRESSION: 1. Linear defect of the radial cortex of the middle phalanx of the 2nd digit concerning for small focus of the osteomyelitis deep to abnormal soft tissues. 2. No displaced fracture or dislocation This document has been electronically signed by: Wayne Avalos MD on 01/29/2025 19:09:59
[2025-01-29 18:08] VITALS: BP 97/64; PULSE 78; RESP 18; TEMP 37; O2SAT 98; BMI 23.7
[2025-01-29 18:25] LABS: MANUAL DIFF FLAG NO
[2025-01-29 18:32] LABS: Basophils Absolute Auto 0.1 X10*3/uL (0.0-0.2); Basophils Percent Auto 0.5 % (0-2); Hematocrit 46.5 % (42.0-52.0); Hemoglobin 16.8 g/dl (14.0-18.0); Imm Gran Abs Auto 0.02 X10*3/uL (0.00-0.03); Imm Gran Pct Auto 0.2 % (0.0-0.4); Lymphocytes Absolute Auto 1.5 X10*3/uL (1.2-4.9); Lymphocytes Percent Auto 15.9 % (20-40); Mean Corpuscular HGB Conc 36.1 g/dl (31.0-36.0); Mean Corpuscular Hemoglobin 30.5 pg (27.0-33.0); Mean Corpuscular Volume 84.5 fL (80.0-98.0); Monocytes Absolute Auto 0.5 X10*3/uL (0.1-1.2); Monocytes Percent Auto 5.3 % (2-11); Neutrophils Absolute Auto 7.2 x10*3/uL (2.0-8.3); Neutrophils Percent Auto 78.1 % (45-73); Platelet Count 161 X10*3/uL (160-400); Red Cell Distribution Width 14.3 % (11.0-16.0); White Blood Count 9.2 X10*3/uL (4.8-10.8)
[2025-01-29 18:50] LABS: Alanine Aminotransferase 16 U/L (0-40); Albumin Level 4.8 g/dL (3.5-5.0); Alkaline Phosphatase 74 U/L (39-117); Anion Gap 13 (12-20); Aspartate Amino Transferase 21 U/L (5-37); Bilirubin Total 0.9 mg/dL (0.0-1.0); Blood Urea Nitrogen 16 mg/dL (9-16); Calcium 9.8 mg/dL (8.4-10.2); Carbon Dioxide 23 mmol/L (22-29); Chloride 108 mmol/L (96-108); Creatinine Clr Calc Pharmacy 94.8; Estimated Glomerular Filt Rate > 60; Glucose Random 175 mg/dL (60-115); Potassium 3.8 mmol/L (3.3-5.1); Sodium 140 mmol/L (135-145); Total Protein 8.1 g/dL (6.5-8.0)
--- OUTSIDE RECORDS SUMMARY | 2025-01-29 22:46 | XMS_ITS | Encounter Summary ---
Author Organization [facility] Address [address] [place] [address] Phone Care Team Providers Care Metal Fabricator Helper Name Role Phone Provider, Raghav RODRIGUES Primary Care Provider [phone] Reason for Visit * Reason Onset Date Comments concern for anxiety 12/09/2024 Encounter Details Date Type Department Care Team (Late st Contact Info) Description 12/09/2024 Telephone [facility] [address] [place] [address] Azra White LPN [address] [place] [address] concern for anxiety Social History Tobacco Use [...] Gregorio I would not refer him to [facility]iat[facility] if he is leaving for [place] in a month. If heneeds something before he leaves he should probably go to the walk-in at [facility]. Can you track down the ED note please? Thanks. PPP * Telephone Encounter - Magalis Aragon - 12/23/2024 5:00 PM EST I spoke to pt and he said that he was given a thirty day supply of meds from the ER (did not specify which meds). I talked about referring him to an adult psychiatrist at [facility] but he said he is moving to [place] at the end of December. I discussed him meeting a Clincian and he said he is doing better and does not need to meet with one. I advised him to get connected with a adult PCP and med provider when he moves to [place]. I told pt if he does not move to [place], to call me and let mayw. Pt [...] needs. Could consider appt with one of [facility]. Will also need a lost of adult [...] hold to check his ins. Estella from desk maker confirmed his ins still good for HPA. Pt disconnected the call. FYI to covering provider. EH documented in this encounter Plan of Treatment Not on file documented as of this encounter Visit Diagnoses Not on filedocumented in this encounter Care Teams Metal Fabricator Helper Relationship Specialty Start Date End Date Provider, MD Raghav [address] [place] [phone] PCP - General Pediatrics 11/13/24 documented as of this encounter
--- OUTSIDE RECORDS SUMMARY | 2025-01-29 22:46 | XMS_ITS | Encounter Summary ---
Author Organization [facility] Address [address] [place] [address] Phone Care Team Providers Care Field Mechanical Meter Tester Name Role Phone Provider, Raghav RODRIGUES Primary Care Provider [phone] Encounter Details Date Type Department Care Team (Late st Contact Info) Description 07/10/2017 Conversion Encounter [facility] [address] [place] [address] Social History Tobacco Use Types Packs/Day Years [...] filedocumented in this encounter Care Teams Field Mechanical Meter Tester Relationship Specialty Start Date End Date Provider, MD Raghav [address] [place] [phone] PCP - General Pediatrics 11/13/24 documented as of this encounter
--- OUTSIDE RECORDS SUMMARY | 2025-01-29 22:46 | XMS_ITS | Clinical Summary ---
Author Organization [facility] Address [address] [place] [address] Phone Care Team Providers Care Head Refrigerating Engineer Name Role Phone Provider, Raghav RODRIGUES Primary Care Provider [phone] Allergies No known active allergies Medications No [...] Sees Annalise Phan, and Carole Lantigua at [facility]. 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
--- OUTSIDE RECORDS SUMMARY | 2025-01-29 22:46 | XMS_ITS | Clinical Summary ---
Author Organization [facility] Address [address] [place] [address] Care Team Providers Care New Autos Delivery Driver Name Role Phone Unavailable Primary Care Provider [...]
--- OUTSIDE RECORDS SUMMARY | 2025-01-29 22:46 | XMS_ITS | Clinical Summary ---
Author Organization [facility] Address [address] [place] [address] Care Team Providers Care Fiberglass Tube Molder Name Role Phone Unavailable Primary Care Provider [...] Andres Long Personal/Family Self 2005 [address] [place] [address]
--- OUTSIDE RECORDS SUMMARY | 2025-01-29 22:46 | XMS_ITS | Encounter Summary ---
Author Organization [facility] Address [address] [place] [address] Phone Care Team Providers Care Skin Grader Name Role Phone Provider, Raghav RODRIGUES Primary Care Provider [phone] Encounter Details Date Type Department Care Team (Late st Contact Info) Description 02/05/2010 Documentation [facility] Family Medicine [address] [place] [address] Family Medicine, Physician [address] [place], [place] [phone] Social History Tobacco Use Types Packs/Day Years [...] on filedocumented in this encounter Care Teams Skin Grader Relationship Specialty Start Date End Date Provider, MD Raghav [address] [place] [address] PCP - General Pediatrics 11/13/24 documented as of this encounter
--- OUTSIDE RECORDS SUMMARY | 2025-01-29 22:46 | XMS_ITS | Encounter Summary ---
Author Organization [facility] Address [address] [place] [address] Phone Care Team Providers Care Credit Collector Name Role Phone Provider, Raghav RODRIGUES Primary Care Provider [phone] Encounter Details Date Type Department Care Team (Late st Contact Info) Description 12/14/[address] [facility] Family Medicine [address] [place] [address] Family Medicine, Physician [address] [place], [place] [phone] Social History Tobacco Use Types Packs/Day Years [...] on filedocumented in this encounter Care Teams Credit Collector Relationship Specialty Start Date End Date Provider, MD Raghav [address] [place] [address] PCP - General Pediatrics 11/13/24 documented as of this encounter
--- OUTSIDE RECORDS SUMMARY | 2025-01-29 22:46 | XMS_ITS | Encounter Summary ---
Author Organization [facility] Address [address] [place] [address] Phone Care Team Providers Care Coach Cleaner Name Role Phone Provider, Raghav RODRIGUES Primary Care Provider [phone] Encounter Details Date Type Department Care Team (Late st Contact Info) Description 01/16/2017 Documentation [facility] [place] Family Medicine [address] [place] [address] Family Medicine, Physician [address] [place], [place] [phone] Social History Tobacco Use Types Packs/Day Years [...] on filedocumented in this encounter Care Teams Coach Cleaner Relationship Specialty Start Date End Date Provider, MD Raghav [address] [place] [address] PCP - General Pediatrics 11/13/24 documented as of this encounter
--- OUTSIDE RECORDS SUMMARY | 2025-01-29 22:46 | XMS_ITS | Encounter Summary ---
Author Organization [facility] Address [address] [place] [address] Phone Care Team Providers Care Bait Packer Name Role Phone Provider, Raghav RODRIGUES Primary Care Provider [phone] Encounter Details Date Type Department Care Team (Late st Contact Info) Description 08/28/2016 Documentation [facility] Family Medicine [address] [place] [address] Family Medicine, Physician [address] [place], [place] [phone] Social History Tobacco Use Types Packs/Day Years [...] on filedocumented in this encounter Care Teams Bait Packer Relationship Specialty Start Date End Date Provider, MD Raghav [address] [place] [address] PCP - General Pediatrics 11/13/24 documented as of this encounter
--- OUTSIDE RECORDS SUMMARY | 2025-01-29 22:46 | XMS_ITS | Encounter Summary ---
Author Organization [facility] Address [address] [place] [address] Phone Care Team Providers Care Spool Cleaner Name Role Phone Provider, Raghav RODRIGUES Primary Care Provider [phone] Encounter Details Date Type Department Care Team (Late st Contact Info) Description 12/13/2016 Documentation [facility] [address] [place] [address] Family Medicine, Physician [address] [place], [place] [phone] Social History Tobacco Use Types Packs/Day Years [...] on filedocumented in this encounter Care Teams Spool Cleaner Relationship Specialty Start Date End Date Provider, MD Raghav [address] [place] [address] PCP - General Pediatrics 11/13/24 documented as of this encounter
--- OUTSIDE RECORDS SUMMARY | 2025-01-29 22:46 | XMS_ITS | Clinical Summary ---
Author Organization [facility] Address [address] [place] [address] Phone Care Team Providers Care Configuration Management Consultant Name Role Phone Physician, No Pcp Primary Care Provider Unavaila ble Allergies No known active allergies Encounters Date Type Department Care Team Description 12/08/2024 8:09 PM EST - 12/08/2024 11:56 PM EST Emergency [facility] Emergency [address] [place] [address] Palpitations (Primary Dx) Discharge Disposition: [...] GEMUSE QTc 399 ms GEMUSE P Wave Bigler -4 degrees GEMUSE R Bigler -113 degrees GEMUSE T Bigler 46 degrees GEMUSE ECG Interpretation Normal sinus [...] of2 resultswithin the time period is included. [facility] High Sensitivity Troponin I 4 <=79 ng/L LAB CHEMISTRY METHOD 12/08/2024 10:46 PM EST [facility] Blood Venous blood specimen / Unknown Venipuncture / Unknown 12/08/2024 9:50 PM EST 12/08/2024 10:18 PM EST Narrative [facility] - 12/08/2024 10:46 PM EST High levels of biotin in samples may falsely decrease hsTroponin values. ??Use caution when interpreting hsTroponin results in patients taking biotin who exhibit renal impairment (eGFR <60) or in patients taking more than 20 mg/day of biotin. [facility] LAB BLOOD ORDERABLES Final Resul t Performing Organization Address [facility]/ZIP Co de Phone Number [facility] [address] [place] [address], [place] [phone] * Thyroid Stimulating Hormone (TSH) (12/08/2024 9:50 PM EST) [facility] TSH 2.31 0.40 - 4.00 mcIU/mL LAB CHEMISTRY METHOD 12/08/2024 10:54 PM EST [facility] Blood Venous blood specimen / Unknown Venipuncture / Unknown 12/08/2024 9:50 PM EST 12/08/2024 10:18 PM EST [facility] LAB BLOOD ORDERABLES Final Resul t Performing Organization Address City/[facility]/ZIP Co de Phone Number [facility] [address] [place] [address], [place] [phone] * Comprehensive Metabolic Panel (CMP) (12/08/2024 9:50 PM EST) [facility] Sodium 140 133 - 145 mmol/L LAB CHEMISTRY METHOD 12/08/2024 10:47 PM EST [facility] Potassium 3.5 3.5 - 5.5 mmol/L LAB CHEMISTRY METHOD 12/08/2024 10:47 PM [facility] Chloride 106 96 - 110 mmol/L LAB CHEMISTRY METHOD 12/08/2024 10:47 PM [facility] CO2 28 21 - 32 mmol/L LAB CHEMISTRY METHOD 12/08/2024 10:47 PM [facility] Anion Gap 6 3 - 11 LAB CHEMISTRY METHOD 12/08/2024 10:47 PM [facility] Glucose 89 70 - 100 mg/dL LAB CHEMISTRY METHOD 12/08/2024 10:47 PM [facility] BUN 15 5 - 25 mg/dL LAB CHEMISTRY METHOD 12/08/2024 10:47 PM [facility] Creatinine 1.13 0.70 - 1.30 mg/dL LAB CHEMISTRY METHOD 12/08/2024 10:47 PM [facility] eGFR 95 >=60 mL/min/1. 73m2 LAB CHEMISTRY METHOD 12/08/2024 10:47 PM [facility] Comment:Calculation based on the??Chronic Kidney Disease Epidemiology Collaboration (CKD-EPI) equation refit??without adjustment for race. BUN/Creatinine Ratio 13.3 LAB CHEMISTRY METHOD 12/08/2024 10:47 PM [facility] Calcium 9.9 8.5 - 10.5 mg/dL LAB CHEMISTRY METHOD 12/08/2024 10:47 PM [facility] AST (SGOT) 21 10 - 42 unit/L LAB CHEMISTRY METHOD 12/08/2024 10:47 PM [facility] ALT (SGPT) 24 10 - 60 unit/L LAB CHEMISTRY METHOD 12/08/2024 10:47 PM [facility] Alkaline Phosphatase 68 42 - 121 unit/L LAB CHEMISTRY METHOD 12/08/2024 10:47 PM [facility] Total Protein 7.7 6.0 - 8.0 g/dL LAB CHEMISTRY METHOD 12/08/2024 10:47 PM EST [facility] Albumin 4.7 3.2 - 5.0 g/dL LAB CHEMISTRY METHOD 12/08/2024 10:47 PM EST [facility] Total Bilirubin 0.8 0.0 - 1.4 mg/dL LAB CHEMISTRY METHOD 12/08/2024 10:47 PM EST [facility] Blood Venous blood specimen / Unknown Venipuncture / Unknown 12/08/2024 9:50 PM EST 12/08/2024 10:18 PM EST us [facility] LAB BLOOD ORDERABLES Final Resul t [facility] [address] [place] [address], [place] [phone] * (ABNORMAL) CBC auto differential (12/08/2024 8:38 PM EST) WBC 8.8 4.8 - 10.8 K/mcL LAB HEMETOLOGY METHOD 12/08/2024 8:51 PM [facility] RBC 5.50 4.50 - 5.50 M/mcL LAB HEMETOLOGY METHOD 12/08/2024 8:51 PM [facility] Hemoglobin 16.4 13.5 - 17.5 g/dL LAB HEMETOLOGY METHOD 12/08/2024 8:51 PM [facility] Hematocrit 47.3 42.0 - 54.0 % LAB HEMETOLOGY METHOD 12/08/2024 8:51 PM [facility] MCV 86.8 79.0 - 98.0 FL LAB HEMETOLOGY METHOD 12/08/2024 8:51 PM [facility] MCH 30.1 27.0 - 32.0 pcg LAB HEMETOLOGY METHOD 12/08/2024 8:51 PM [facility] MCHC 34.7 32.0 - 37.0 g/dL LAB HEMETOLOGY METHOD 12/08/2024 8:51 PM [facility] RDW 13.2 11.0 - 15.0 % LAB HEMETOLOGY METHOD 12/08/2024 8:51 PM [facility] Platelets 194 130 - 400 K/mcL LAB HEMETOLOGY METHOD 12/08/2024 8:51 PM [facility] MPV 12.4(H) 7.0 - 11.0 FL LAB HEMETOLOGY METHOD 12/08/2024 8:51 PM [facility] NRBC 0.0 <1.0 % LAB HEMETOLOGY METHOD 12/08/2024 8:51 PM [facility] NRBC Absolute 0.00 <0.10 K/mcL LAB HEMETOLOGY METHOD 12/08/2024 8:51 PM [facility] Neutrophils Relative 65.5 % LAB HEMETOLOGY METHOD 12/08/2024 8:51 PM [facility] Lymphocytes Relative 26.3 % LAB HEMETOLOGY METHOD 12/08/2024 8:51 PM [facility] Monocytes Relative 7.1 % LAB HEMETOLOGY METHOD 12/08/2024 8:51 PM [facility] Eosinophils Relative 0.1 % LAB HEMETOLOGY METHOD 12/08/2024 8:51 PM [facility] Basophils Relative 0.7 % LAB HEMETOLOGY METHOD 12/08/2024 8:51 PM [facility] Immature Granulocytes Relative 0.3 % LAB HEMETOLOGY METHOD 12/08/2024 8:51 PM [facility] Neutrophils Absolute 5.76 1.50 - 7.00 K/mcL LAB HEMETOLOGY METHOD 12/08/2024 8:51 PM [facility] Lymphocytes Absolute 2.31 1.00 - 5.00 K/mcL LAB HEMETOLOGY METHOD 12/08/2024 8:51 PM EST [facility] Monocytes Absolute 0.62 0.20 - 1.00 K/mcL LAB HEMETOLOGY METHOD 12/08/2024 8:51 PM EST [facility] Eosinophils Absolute 0.01 0.00 - 0.50 K/[facility] LAB HEMETOLOGY METHOD 12/08/2024 8:51 PM EST [facility] Basophils Absolute 0.06 0.00 - 0.20 K/[facility] HEMETOLOGY METHOD 12/08/2024 8:51 PM EST [facility] Immature Granulocytes Absolute 0.03 0.00 - 0.03 K/[facility] HEMETOLOGY METHOD 12/08/2024 8:51 PM EST [facility] Blood Venous blood specimen / Unknown Venipuncture / Unknown 12/08/2024 8:38 PM EST 12/08/2024 8:43 PM EST [facility] LAB BLOOD ORDERABLES Final Resul t [facility] [address] [place] [address], * ECG-Annotated (12/08/2024) Only the most recent of2 resultswithin the time period is included. us Provider Onbase MD ECG ORDERABLES Final Result from Last 3 Months Insurance [facility] Care Teams Configuration Management Consultant Relationship Specialty Start Date End Date Physician, No Pcp PCP - General 12/08/24
== END 2025-01-29 22:49 | disposition left against medical advice (07) ==
PROVIDERS: Physician Assistant Medical; Emergency Provider Emergency Medicine
DX: S61.210D Laceration without foreign body of right index finger without damage to nail, subsequent encounter (principal); W45.8XXD Other foreign body or object entering through skin, subsequent encounter
CPT/HCPCS: 36415; 73140; 80053; 85025; 99281

== ENCOUNTER → 2025-01-29 18:09 | Outpatient (BNV) | payer OTHER, SELFPAY | PROVIDERS: Visit Provider Radiology Neuroradiology | DX: M79.644 Pain in right finger(s) (principal) | CPT/HCPCS: 73140 ==

== ENCOUNTER → 2025-06-10 22:29 | Outpatient (BNV) | payer OTHER, SELFPAY | PROVIDERS: Emergency Provider Internal Medicine; PCP Pediatrics Adolescent Medicine; Visit Provider Radiology Diagnostic Radiology | DX: M79.641 Pain in right hand (principal); R22.31 Localized swelling, mass and lump, right upper limb | CPT/HCPCS: 73130 ==

== ENCOUNTER 2025-06-10 23:08 | Emergency (ER) | payer OTHER, SELFPAY ==
--- NOTE | ~2025-06-10 | XR_ITS ---
CLINICAL HISTORY: Pain swelling 3 views right hand Comparison: None Findings: There is an old healed 5th metacarpal fracture. There is no acute fracture. Joint spaces and joint alignment are normal. There is no radiopaque foreign body. Impression: No acute findings. This document has been electronically signed by: Suhas Hernandez MD on 06/10/2025 23:51:28
[2025-06-10 23:17] VITALS: BP 119/45; PULSE 96; RESP 16; O2SAT 97; BMI 22.9
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
[2025-06-11 01:22] VITALS: BP 125/78; PULSE 77; RESP 14; TEMP 36.7; O2SAT 98
[2025-06-11 01:25] VITALS: BP 125/78; PULSE 77; RESP 14; TEMP 36.7; O2SAT 98
== END 2025-06-11 01:26 | disposition home or self-care (01) ==
PROVIDERS: Emergency Provider Internal Medicine; PCP Pediatrics Adolescent Medicine
DX: S60.221A Contusion of right hand, initial encounter (principal); W22.09XA Striking against other stationary object, initial encounter; Y93.89 Activity, other specified; Y92.9 Unspecified place or not applicable; Y99.9 Unspecified external cause status
CPT/HCPCS: 73130; 99283; 99284